=== PATIENT | female | born 1940 | race Caucasian/White ===

== ENCOUNTER 2016-09-15 19:46 | Observation (INO) | payer OTHER ==
--- NOTE | 2016-09-15 20:17 | EDPHY ---
H & P Time Seen by Provider: 09/15/16 20:07 HPI/ROS: CHIEF COMPLAINT: Right leg wound HISTORY OF PRESENT ILLNESS: Patient is a 75-year-old female who presents emergency department from her primary care physician's office with a right lower extremity wound. Patient lung make sure she did not have infection prior to the holiday so she went to the clinic at [facility]. They sent her to see Dr. Savage. Dr. Savage sent her to the emergency department. Patient states she 1st noticed the wound 2 weeks ago. She has had a small open sore on the distal lateral and posterior aspect of her right leg. She has had a small area of yellow discharge. The skin on her anterior vicente has been chronically discolored. She does not note any new redness or warmth. She states her right lower extremity is slightly swollen compared to the left. No fevers or chills. Patient has chronic COPD and is on oxygen. She normally uses 2 L at home on 4 L 1 out known about. She denies new shortness of breath or cough. REVIEW OF SYSTEMS: My complete review of systems is negative except as mentioned in the HPI. Past Medical/Surgical History: Includes COPD, CHF, Graves disease, as polycythemia, breast cancer Past surgical history: Includes Mastectomy Social history: Patient lives alone. Smoking Status: Former smoker Physical Exam: Vitals noted. Mildly tachycardic at 111 in triage. 104 when I evaluated the patient in the room. Her O2 saturation was 84% on 4 L with ambulation. Her saturation improved to 91% on 5 L. When I evaluated the patient the room I turned her oxygen saturation down to 4 L and her O2 saturation remained at 91% GENERAL: No acute distress, alert. On nasal cannula. HEENT: Eyes normal to inspection, normal pharynx, no signs of dehydration. NECK: No thyromegaly, no lymphadenopathy, supple. RESPIRATORY: Clear to auscultation bilaterally, no rales, rhonchi or wheezing. CVS: Regular rate and rhythm, no rubs, murmurs, or gallops. ABDOMEN: Soft, nontender, nondistended, no organomegaly. BACK: Normal to inspection, no CVA tenderness. SKIN: Normal color, no rash, warm, dry. No pallor. EXTREMITIES: mild right lower extremity pedal edema. Patient has stasis color changes of her right lower extremity. She states this is baseline. She has a lateral posterior skin tear/lesion that has mild yellow discharge. There is no palpable warmth or surrounding erythema. No streaking up the leg. No Homans sign. No cord. No calf tenderness. NEURO/PSYCH: Alert and oriented x3, normal mood and affect, normal motor sensory exam. No obvious cranial nerve deficit. Constitutional: Initial Vital Signs Temperature (C) 36.9 C 09/15/16 20:09 Heart Rate 105 H 09/15/16 20:09 Respiratory Rate 18 09/15/16 20:09 Blood Pressure 151/69 H 09/15/16 20:09 O2 Sat (%) 84 L 09/15/16 20:09 O2 Delivery Mode Nasal Cannula O2 (L/minute) 4 Allergies/Adverse Reactions: iodine [Iodine] Allergy (Severe, Verified 09/15/16 20:06) WELTS, INSIDE & OUT Fish Containing Products Allergy (Intermediate, Verified 09/15/16 20:06) VOMITING/DIARRHEA penicillin V potassium [From Pen-Vee K] Allergy (Intermediate, Verified 20:06) SWELLING, TINGLING ARMS Sulfa (Sulfonamide Antibiotics) Allergy (Mild, Verified 09/15/16 20:06) Rash CONTRAST Allergy (Severe, Uncoded 03/17/14 11:54) Unknown Home Medications: Medication Instructions Recorded Budesonide, Micronized [Budesonide] 0.5 gm MC 10/21/11 Fenofibrate [Tricor 145 MG (RX)] 145 mg PO DAILY 10/21/11 Levalbuterol 1.25 mg [Xopenex 1.25 mg IH 10/21/11 1.25MG Neb (RX)] Lisinopril [Zestril 2.5 mg (RX)] 2.5 mg PO DAILY 10/21/11 Methimazole 10 mg PO 10/21/11 Triamterene/Hydrochlorothiazid 1 each PO 10/21/11 [Triamterene-Hctz 37.5-25 mg Tb] glipiZIDE XL [Glucotrol XL 10 MG 10 mg PO DAILY 10/21/11 (RX)] Medical Decision Making - Diagnostics EKG Interpretation: Sinus tachycardia 102. Normal axis. First-degree AV block. ST or T-wave changes. Imaging Results: Imaging Impressions Chest X-Ray 09/15/16 20:12 Impression: 1. Findings suggestive of COPD/chronic bronchitis are noted. 2. Basilar scarring. Extremity Venous Study 09/15/16 20:13 Impression: Findings consistent with deep vein thrombosis of the peroneal veins in the right calf. Results called and discussed with VENKAT YAÑEZ on 09/15/2016 at 21:51 ED Course/Re-evaluation: In the emergency department I discussed the plan with the patient. I answered all her questions. An IV was placed. Laboratory studies, EKG, chest x-ray and ultrasound were ordered. Patient was noted to be mildly hypoxic on arrival. Her oxygen level was increased to 5 L a minute. On recheck the patient did not appear to have significant respiratory distress. Patient's oxygen was titrated to 4 L a minute. Her O2 saturation was 91%. Patient continued to be mildly tachycardic. Reviewed the patient's laboratory studies. CBC was normal. Chemistry panel was notable for mildly elevated creatinine 1.2. BNP was 172. Troponin was negative. Chest x-ray: Findings consistent with COPD. No pneumonia. Ultrasound: Please refer the dictated report by Dr. Remi Callaway. Patient has clotted peroneal vein I discussed the results with the patient. I answered all her questions. Patient was given Lovenox 100 mg subcu. I discussed case with Dr. Humphrey. Based on the patient's presentation with hypoxia on oxygen, increased oxygen demand, leg swelling, lesions on the lower leg and ultrasound positive for perineum DVT, the patient will be admitted for further observation and care. Differential Diagnosis: Differential includes but is not limited to cellulitis, DVT, arterial occlusion , skin stasis changes, pressure wound, CHF, hypoxia, pneumonia, COPD exacerbation - Data Points Laboratory Results: Laboratory Results 09/15/16 20:25 09/15/16 20:25 09/15/16 09/15/16 20:25 20:25 WBC 7.26 10^3/uL 10^3/uL (3.80-9.50) RBC 4.65 10^6/uL 10^6/uL (4.18-5.33) Hgb 13.6 g/dL g/dL (12.6-16.3) Hct 41.0 % % (38.0-47.0) MCV 88.2 fL fL (81.5-99.8) MCH 29.2 pg pg (27.9-34.1) MCHC 33.2 g/dL g/dL (32.4-36.7) RDW 14.3 % % (11.5-15.2) Plt Count 208 10^3/uL 10^3/uL (150-400) MPV 9.7 fL fL (8.7-11.7) Neut % (Auto) 69.6 % % (39.3-74.2) Lymph % (Auto) 20.7 % % (15.0-45.0) Meade % (Auto) 7.4 % % (4.5-13.0) Eos % (Auto) 1.0 % % (0.6-7.6) Baso % (Auto) 0.3 % % (0.3-1.7) Nucleat RBC Rel Count 0.0 % % (0.0-0.2) Absolute Neuts (auto) 5.06 10^3/uL 10^3/uL (1.70-6.50) Absolute Lymphs (auto) 1.50 10^3/uL 10^3/uL (1.00-3.00) Absolute Monos (auto) 0.54 10^3/uL 10^3/uL (0.30-0.80) Absolute Eos (auto) 0.07 10^3/uL 10^3/uL (0.03-0.40) Absolute Basos (auto) 0.02 10^3/uL 10^3/uL (0.02-0.10) Absolute Nucleated RBC 0.00 10^3/uL 10^3/uL (0-0.01) Immature Gran % 1.0 % % (0.0-1.1) Immature Gran # 0.07 10^3/uL 10^3/uL (0.00-0.10) Sodium 141 mEq/L mEq/L (134-144) Potassium 4.5 mEq/L mEq/L (3.5-5.2) Chloride 102 mEq/L mEq/L (97-110) Carbon Dioxide 27 mEq/l mEq/l (22-31) Anion Gap 12 mEq/L mEq/L (8-16) BUN 28 mg/dL H mg/dL (7-23) Creatinine 1.2 mg/dL H mg/dL (0.6-1.0) Estimated GFR 44 Glucose 187 mg/dL H mg/dL (70-100) Calcium 9.7 mg/dL mg/dL (8.5-10.4) Troponin I < 0.012 ng/mL ng/mL (0-0.034) NT-Pro-B Natriuret Pep 178 pg/mL H pg/mL (0-125) Departure - Departure Clinical Impression: Right leg swelling COPD (chronic obstructive pulmonary disease) Qualifiers: COPD type: unspecified COPD Qualified Code(s): J44.9 - Chronic obstructive pulmonary disease, unspecified DVT (deep venous thrombosis) Qualifiers: DVT location: lower extremity Affected thrombotic vein of extremity: other lower extremity vein Chronicity: acute Laterality: right Qualified Code(s): I82.491 - Acute embolism and thrombosis of other specified deep vein of right lower extremity Condition: Good Referrals: Kayla Desouza MD [Primary Care Provider] - As per Instructions
--- NOTE | 2016-09-15 20:22 | CPEKG ---
Heart Rate: 102 RR Interval: 588 P-R Interval: 216 QRSD Interval: 90 QT Interval: 348 QTC Interval: 454 P Nottingham: 72 QRS Nottingham: 33 T Wave Nottingham: 71 EKG Severity - ABNORMAL ECG - EKG Impression: SINUS TACHYCARDIA EKG Impression: FIRST DEGREE AV BLOCK EKG Impression: PROBABLE LEFT ATRIAL ABNORMALITY Electronically Signed By: Aria Mata 15-Sep-2016 22:46:00
[2016-09-15 20:33] LABS: ABSOLUTE IMMATURE GRANULOCYTES 0.07 10^3/uL (0.00-0.10); ADD DIFF? NO; ADD MORPH? NO; ADD SCAN? NO; ATYPICAL LYMPHOCYTE FLAG 10 (0-99); FRAGMENT RBC FLAG 0 (0-99); HEMOGLOBIN 13.6 g/dL (12.6-16.3); LEFT SHIFT FLG 0 (0-99); LIPEMIA HEMOLYSIS FLAG 80 (0-99); MEAN CELL HEMOGLOBIN 29.2 pg (27.9-34.1); MEAN CELL HEMOGLOBIN CONCENTR. 33.2 g/dL (32.4-36.7); MEAN CELL VOLUME 88.2 fL (81.5-99.8); MEAN PLATELET VOLUME 9.7 fL (8.7-11.7); PLATELET CLUMPS FLAG 0 (0-99); PLATELET COUNT 208 10^3/uL (150-400); RED BLOOD CELL COUNT 4.65 10^6/uL (4.18-5.33); RED CELL DISTRIBUTION WIDTH 14.3 % (11.5-15.2)
[2016-09-15 20:49] LABS: ANION GAP 12 mEq/L (8-16); CALCIUM 9.7 mg/dL (8.5-10.4); CARBON DIOXIDE 27 mEq/l (22-31); CHLORIDE 102 mEq/L (97-110); CREATININE 1.2 mg/dL (0.6-1.0); GLOMERULAR FILTRATION RATE 44; GLUCOSE 187 mg/dL (70-100); POTASSIUM 4.5 mEq/L (3.5-5.2); SODIUM 141 mEq/L (134-144)
[2016-09-15 20:55] LABS: TROPONIN I < 0.012 ng/mL (0-0.034)
[2016-09-15] MEDS ORDERED: ENOXAPARIN 100 MG/ML SYR SC ONE (21:57)
[2016-09-16] MEDS ORDERED: ONDANSETRON 4 MG/2 ML VIAL IVP PRN (00:49)
[2016-09-16] MEDS ORDERED: ACETAMINOPHEN 325 MG TAB PO PRN (00:49)
[2016-09-16] MEDS ORDERED: ONDANSETRON DISINTEGRATING 4 MG TAB PO PRN (00:49)
[2016-09-16] MEDS ORDERED: D50W 25 GM/50 ML SYR IVP PRN (01:20)
[2016-09-16] MEDS ORDERED: DOXYCYCLINE HYCLATE 100 MG CAP/TAB PO SCH ×2 (01:30→09:00)
--- NOTE | 2016-09-16 02:11 | GHP ---
[f rep st] HISTORY AND PHYSICAL DATE OF ADMISSION: 09/15/2016 CHIEF COMPLAINT: Right lower extremity deep venous thrombosis, cellulitis. HISTORY OF PRESENT ILLNESS: patient is a pleasant, 75-year-old female with multiple medical problems, including COPD, chronic hypoxemic respiratory failure , diabetes, Graves disease, who presented from her PCP's office with a right lower extremity wound. She has had swelling of both her ankles for the past 2 weeks, greater on the right. She developed a large wound on the lateral leg and a smaller wound on the medially. They initially drained clear fluid, but has been yellow last couple days, with sloughing of the skin. Legs are slightly more red than normal. Denies fevers, chills, sweats, cough or chest pain. She does report having intermittent nosebleeds for the past years that can be worrisome. REVIEW OF SYSTEMS: I completed a 10-point review of systems, negative except as noted in HPI. PAST MEDICAL HISTORY: Chronic kidney disease (Cr 1.1-1.2), history of colitis, COPD, chronic hypoxemic respiratory failure, on 2.5L-4L, diabetes, asthma, Graves disease, polycythemia, ventral hernia, emphysema, history of breast cancer. PAST SURGICAL HISTORY: Left mastectomy, bilateral cataracts. SOCIAL HISTORY: Lives in [place] with herself. Does have a brother who lives near by. Smoked a pack of cigarettes for 40 years, quit 7 months ago. No alcohol or illicits. Uses a walker. FAMILY HISTORY: Paternal grandfather with an GA. Mother and maternal aunts with breast cancer. PHYSICAL EXAMINATION: Temperature 36.8, blood pressure 131/69, heart rate is in the 90s, respirations 18, 84% on 4 L, now 91%. GENERAL: Patient is sitting up on bed, no acute distress. HEENT: PERRLA. EOMI. Oropharynx clear. CV: Regular rate and rhythm. No murmurs, gallops, or rubs. LUNGS: Diminished breath sounds throughout, but no wheezes or crackles. ABDOMEN: Soft, nontender , nondistended. Positive bowel sounds. : No suprapubic or CVA tenderness. MUSCULOSKELETAL: 5/5 upper and lower extremity strength. SKIN: Bilateral lower leg erythema, greater on the right, with warmth. Redness extends up to upper vicente. She has 2 wounds, larger on the lateral aspect, with a scabbed over sore, with dry, flaky skin, not actively draining purulence. A smaller ulceration on the medial aspect. +2 pedal pulses bilaterally. NEUROLOGIC: 2 through 12 intact. PSYCHIATRIC: Alert and oriented x3.. LABORATORY DATA: Sodium 141, potassium 4.5, chloride 102, carbon dioxide 27, BUN 28, creatinine 1.2, glucose 187, calcium 9.7. Troponin less than 0.012. BNP is 178. WBC 7.2, hemoglobin is 13, hematocrit 41, platelets 208. EKG is personally reviewed by me. Sinus tachycardia, first-degree AV block. Chest x-ray, personally reviewed by me. Hyperexpanded lung hill. No opacity or effusion. Ultrasound: DVT of the peroneal veins in the right calf. ASSESSMENT AND PLAN: 1. Acute right peroneal deep venous thrombosis: likely due to immobility; reports not getting around much. Given the distal location of clot, there could be some argument against not treating with anticoagulation; however, she is symptomatic with increased swelling of that leg. It is reasonable to treat for 3 months. I discussed oral options including Coumadin and novel agents. She is concerned, because has had several nosebleeds over the past year. I explained the risks and benefits of anticoagulation and she will decide on best option for her. 2. Chronic kidney disease. Creatinine is at baseline of 1.2. 3. Chronic hypoxemic respiratory failure: concern at [facility] [place]. She denies CP, cough or increased SOB. Normally on 2.5 L, up to 4L with activity. No evidence of pneumonia or infectious symptoms. 4. Controlled type 2 diabetes: resume home medications. 5. Asthma: Continue inhalers. 6. Graves disease: methimazole 7. Benign hypertension: Continue home medications. 8. Mild LE swelling: ddx includes: CHF, nephrotic syndrome or liver. BNP normal. Add LFTs, check UA for protein. Can consider TTE for RHF as outpatient. 9. Bilateral lower extremity cellulitis: difficult to discern if these are just chronic venous changes, but the right leg does appear to be more red and slightly warmer. We will treat empirically with oral antibiotics since currently afebrile without leukocytosis. Wound Care to evaluate ulcerations. DIET: Diabetic. DVT PROPHYLAXIS: On Lovenox. DISPOSITION: Patient warrants observation admission, given acute DVT and cellulitis. /[id number]/MODL MTDD
[2016-09-16 05:46] LABS: INR 1.06 (0.83-1.16); PROTIME(PATIENT) 13.7 SEC (12.0-15.0)
[2016-09-16 05:54] LABS: ALANINE AMINOTRANSFERASE 31 IU/L (9-52); ALBUMIN 3.9 g/dL (3.5-5.0); ALKALINE PHOSPHATASE 49 IU/L (38-126); ANION GAP 9 mEq/L (8-16); ASPARTATE AMINOTRANSFERASE 14 IU/L (14-46); BILIRUBIN,TOTAL 0.7 mg/dL (0.1-1.4); BILIRUBIN-CONJUGATED 0.5 mg/dL (0.0-0.5); BILIRUBIN-UNCONJUGATED 0.2 mg/dL (0.0-1.1); CALCIUM 9.5 mg/dL (8.5-10.4); CARBON DIOXIDE 25 mEq/l (22-31); CHLORIDE 107 mEq/L (97-110); CREATININE 1.1 mg/dL (0.6-1.0); GLOMERULAR FILTRATION RATE 49; GLUCOSE 192 mg/dL (70-100); SODIUM 141 mEq/L (134-144); TOTAL PROTEIN 6.8 g/dL (6.3-8.2)
[2016-09-16 06:16] LABS: COLOR YELLOW; LEUKOCYTE ESTERASE,URINE TRACE (NEGATIVE); NITRITE,URINE POSITIVE (NEGATIVE)
[2016-09-16 06:33] LABS: BACTERIA 2+ /hpf (NONE SEEN); MUCUS TRACE /lpf (NONE-1+)
[2016-09-16 07:23] VITALS: BP 133/68; PULSE 91; RESP 16; TEMP 98.1; O2SAT 92
[2016-09-16] MEDS: INSULIN LISPRO 100 UNIT/ML SC SCH ×2 (08:09→11:49)
[2016-09-16] MEDS ORDERED: ENOXAPARIN 40 MG/0.4 ML SYR SC SCH (09:00)
[2016-09-16] MEDS ORDERED: ENOXAPARIN 80 MG/0.8 ML SYR SC SCH (09:00)
[2016-09-16] MEDS ORDERED: METHIMAZOLE 5 MG TAB PO SCH (10:59)
[2016-09-16] MEDS ORDERED: LISINOPRIL 2.5 MG TAB PO SCH (10:59)
--- NOTE | 2016-09-16 15:36 | GDS ---
[f rep st] DISCHARGE SUMMARY DISCHARGE DIAGNOSES: 1. New right lower extremity deep venous thrombosis, initiating anticoagulation. 2. Bilateral lower extremity cellulitis. 3. Chronic kidney disease. 4. Chronic hypoxic respiratory failure. 5. Controlled type 2 diabetes. 6. Asthma. 7. Graves disease. 8. Hypertension. 9. Presumed asymptomatic pyuria. HISTORY OF PRESENT ILLNESS: This is a 75-year-old female with multiple medical comorbidities, who p resents with right lower extremity pain and cellulitis. For details of the patient's initial presentation, please see the history and physical dated 017. CONSULTATIVE SERVICES: None. IMAGING: On 09/15/2016, the patient had an ultrasound of her right lower extremity that confirms th e presence of a DVT. HOSPITAL COURSE: By issue: 1. Acute right lower extremity DVT. The patient was symptomatic with edema and discomfort. She wa s initiated on Lovenox overnight after discussions with pharmacy. The patient wishes to begin long- term anticoagulation with warfarin. She will be provided with 14 syringes of Lovenox to bridge her to a therapeutic INR. She is to follow with her outpatient primary care provider for INR check on 0 09/18/2016. 2. Bilateral lower extremity cellulitis. The patient had erythema of bilateral lower extremities. She was initiated on doxycycline, with some improvement overnight. The patient will complete a 7-d ay course of oral doxycycline, and again follow with her outpatient provider. 3. Diabetes type 2. The patient will be continued on her oral regimen without alteration. 4. Hypertension. The patient will be continued on her home blood pressure medicines, without tellez e. Systolic blood pressures ranged in the 130s overnight. 5. Presumed asymptomatic pyuria. The patient had urinalysis checked at the [facility] and w as found to have a few white blood cells. It has been sent for culture. The patient is not able to clearly discern new symptoms of frequency, dysuria or hematuria. Clinical suspicion for an active urinary tract infection is low. We will not empirically treat at this time. If a pathogen grows, we will contact the patient for additional antibiotic therapy. MEDICATIONS AT THE TIME OF DISPOSITION: Please reference the med rec printed on 09/16/2016. FOLLOWUP APPOINTMENTS: Include with her primary care provider, Dr. Desouza, for followup on her f irst INR as well as bilateral lower extremity cellulitis. PENDING STUDIES AT THE TIME OF DICTATION: Include a urine culture which was obtained and is pending . No growth to date at the time of her disposition. TIME SPENT: I spent greater than 30 minutes in the planning and coordination of this discharge. /[id number]/MODL
[2016-09-17] MEDS ORDERED: METHIMAZOLE 10 MG PO SCH (09:00)
[2016-09-17] MEDS ORDERED: TRIAMTERENE/HCTZ 37.5/25 1 EACH TAB PO SCH (09:00)
[2016-09-17] MEDS ORDERED: LISINOPRIL 2.5 MG TAB PO SCH (09:00)
[2016-09-17] MEDS ORDERED: METHIMAZOLE 5 MG TAB PO SCH (09:00)
--- NOTE | 2016-09-17 17:01 | HOSPPROG ---
Hospitalist Progress Note Assessment/Plan: follow- up on urine culture - growing Gram negative Bryant >100,000 Starting levofloxacin 750mg daily x 7 days - prescription E-prescribed to patients pharmacy Patient contacted by phone and made aware. Objective: Vital Signs Temp Pulse Resp BP Pulse Ox 36.7 C 91 16 133/68 H 92 09/16/16 07:22 09/16/16 07:22 09/16/16 07:22 09/16/16 07:22 09/16/16 07:22 Laboratory Results 09/16/16 05:27 09/16/16 09/17/16 09/18/16 05:59 05:59 05:59 Intake Total 750 0 Output Total 750 Balance 0 0 PT 13.7 SEC (12.0-15.0) 09/16/16 05:27 INR 1.06 (0.83-1.16) 09/16/16 05:27 ICD10 Worksheet Patient Problems: Problems Problem Status Onset COPD (chronic obstructive pulmonary disease) Acute Right leg swelling Acute DVT (deep venous thrombosis) Acute
== END 2016-09-16 14:10 | disposition home or self-care (01) ==
LOC: CED 19:46 → INTOOBSV 22:19 → OBSVTOIN 22:19 → CEDHOLD 22:19 → F1N 23:22
PROVIDERS: ADMIT Hospitalist; ATTEND Hospitalist
DX: I82.4Z1 Acute embolism and thrombosis of unspecified deep veins of right distal lower extremity (principal); L03.115 Cellulitis of right lower limb; I12.9 Hypertensive chronic kidney disease with stage 1 through stage 4 chronic kidney disease, or unspecified chronic kidney disease; N18.9 Chronic kidney disease, unspecified; E11.9 Type 2 diabetes mellitus without complications; J44.9 Chronic obstructive pulmonary disease, unspecified; J96.11 Chronic respiratory failure with hypoxia; D75.1 Secondary polycythemia; Z99.81 Dependence on supplemental oxygen; Z85.3 Personal history of malignant neoplasm of breast; Z87.891 Personal history of nicotine dependence
CPT/HCPCS: 71020; 93005; 93971; 96372; 99285; G0378; J1650; J1815; 80048-PO; 83880-PO; 84484-PO; 85025-PO